=== PATIENT | female | born 1970 | race Native Hawaiian/Other Pacific Islander ===

== ENCOUNTER 2017-12-13 09:10 | Day surgery (SDC) | payer OTHER ==
[2017-12-13 10:12] LABS: POTASSIUM 4.4 mmol/L (3.6-5.2)
[2017-12-13 10:15] LABS: PLATELET COUNT 263 K/uL (152-353)
== END 2017-12-13 15:49 | disposition home or self-care (01) ==
LOC: OR 09:10
PROVIDERS: Student in an Organized Health Care Education/Training Program
PROC: 0FT44ZZ Resection of Gallbladder, Percutaneous Endoscopic Approach (ICD-10-PCS; principal; 2017-12-13)
DX: K80.10 Calculus of gallbladder with chronic cholecystitis without obstruction (principal)
CPT/HCPCS: 80053; 84703; 85027; J0330; J0690; J1100; J1170; J1885; J2001; J2250; J2405; J2704; J2710; J2765; J3010; J3490

== ENCOUNTER 2017-12-22 09:13 | Outpatient (CLI) | payer OTHER | END 2017-12-22 23:18 | disposition home or self-care (01) | LOC: MAMMO 09:13 | DX: Z12.31 Encounter for screening mammogram for malignant neoplasm of breast (principal) ==

== ENCOUNTER 2018-06-13 07:32 | Day surgery (SDC) | payer OTHER ==
[2018-06-13 08:36] LABS: PLATELET COUNT 280 K/uL (152-353)
[2018-06-13 08:54] LABS: POTASSIUM 3.9 mmol/L (3.6-5.2)
== END 2018-06-13 10:15 | disposition home or self-care (01) ==
LOC: OR 07:32
PROVIDERS: Student in an Organized Health Care Education/Training Program
PROC: 0DB48ZZ Excision of Esophagogastric Junction, Via Natural or Artificial Opening Endoscopic (ICD-10-PCS; principal; 2018-06-13)
PROC: 0DB68ZZ Excision of Stomach, Via Natural or Artificial Opening Endoscopic (ICD-10-PCS; 2018-06-13)
DX: K29.50 Unspecified chronic gastritis without bleeding (principal); B96.81 Helicobacter pylori [H. pylori] as the cause of diseases classified elsewhere; K44.9 Diaphragmatic hernia without obstruction or gangrene; K21.9 Gastro-esophageal reflux disease without esophagitis; K29.80 Duodenitis without bleeding; R10.84 Generalized abdominal pain
CPT/HCPCS: 80053; 85027; J2001; J2250; J2405; J2704; J2765

== ENCOUNTER 2020-02-23 07:51 | Outpatient (CLI) | payer OTHER ==
[2020-02-23 09:15] LABS: POTASSIUM 4.5 mmol/L (3.6-5.2)
[2020-02-23 10:04] LABS: PLATELET COUNT 256 K/uL (152-353)
== END 2020-02-23 19:11 | disposition home or self-care (01) ==
LOC: LABW 07:51
PROVIDERS: Nurse Practitioner
DX: Z68.35 Body mass index [BMI] 35.0-35.9, adult (principal)
CPT/HCPCS: 36415; 80053; 80061; 81000; 82652; 84439; 84443; 85027

== ENCOUNTER 2020-12-10 11:25 | Outpatient (CLI) | payer OTHER ==
[~2020-12-10] VITALS: Ht 154.9 cm; Wt 85.7 kg
== END 2020-12-10 19:11 | disposition home or self-care (01) ==
LOC: INF 11:25
PROVIDERS: ATTEND Internal Medicine
DX: Z23 Encounter for immunization (principal); U07.1 COVID-19
CPT/HCPCS: 96365; M0244

== ENCOUNTER 2022-07-25 22:00 | Observation (INO) | payer OTHER ==
[~2022-07-25] VITALS: Ht 154.9 cm; Wt 89.4 kg
[2022-07-25 22:00] VITALS: BP 189/98; TEMP 97.9
[2022-07-25 22:30] VITALS: BP 127/83
[2022-07-25 22:45] VITALS: BP 164/90
[2022-07-25 22:45] LABS: PLATELET COUNT 267 K/uL (152-353)
[2022-07-25 22:56] LABS: POTASSIUM 3.5 mmol/L (3.6-5.2)
[2022-07-25 23:00] VITALS: BP 112/60
[2022-07-25 23:15] VITALS: BP 109/64
[2022-07-25 23:30] VITALS: BP 101/65
[2022-07-25 23:49] LABS: PARTIAL THROMBOPLASTIN TIME 27.3 SECONDS (24.5-33.6)
[2022-07-26 00:01] VITALS: BP 106/54
[2022-07-26 00:30] VITALS: BP 119/55
[2022-07-26 02:36] VITALS: BP 176/79; TEMP 98.2; Ht 154.9 cm; Wt 89.4 kg
[2022-07-26 04:00] VITALS: BP 137/46; TEMP 98.7
[2022-07-26 08:00] VITALS: BP 153/81; TEMP 97.6
[2022-07-26] MEDS ORDERED: OMEP40CA PO (10:35)
[2022-07-26] MEDS ORDERED: METO50TA27 PO (10:35)
[2022-07-26] MEDS ORDERED: LISI10TA11 PO (10:36)
[2022-07-26] MEDS ORDERED: NYST100016 TOP (10:39)
[2022-07-26] MEDS ORDERED: DICYCLOMINE HYD10 MG PO (10:43)
[2022-07-26 12:00] VITALS: BP 189/90; TEMP 98
== END 2022-07-26 17:03 | disposition short-term general hospital (02) ==
LOC: ED 22:00 → MED/SURG 07-26 00:50
PROVIDERS: Family Medicine; ADMIT Internal Medicine; ATTEND Internal Medicine
DX: I21.4 Non-ST elevation (NSTEMI) myocardial infarction (principal); R07.89 Other chest pain; E78.49 Other hyperlipidemia; I10 Essential (primary) hypertension; K21.9 Gastro-esophageal reflux disease without esophagitis; F12.10 Cannabis abuse, uncomplicated; Z72.0 Tobacco use; F41.8 Other specified anxiety disorders
CPT/HCPCS: 36415; 80053; 80307; 81002; 82150; 82550; 83690; 84484; 85027; 85610; 85730; 93005; 96361; 96374; 99221; 99284; G0378; J0360; J1650; J1885; J2270

== ENCOUNTER 2022-09-18 09:18 | Outpatient (CLI) | payer OTHER ==
[~2022-09-18 09:18] MED LIST: DICYCLOMINE HYD10 MG PO; LISI10TA11 PO; METO50TA27 PO; NYST100016 TOP; OMEP40CA PO
[2022-09-18 10:00] LABS: POTASSIUM 4.5 mmol/L (3.6-5.2)
== END 2022-09-18 19:29 | disposition home or self-care (01) ==
LOC: LABW 09:18
PROVIDERS: ATTEND Internal Medicine Cardiovascular Disease
DX: E78.49 Other hyperlipidemia (principal); Z79.899 Other long term (current) drug therapy
CPT/HCPCS: 36415; 80053; 80061